=== PATIENT | male | born 1955 | race Caucasian/White ===

== ENCOUNTER 2020-08-17 19:25 | Emergency (ER) | payer MEDICARE ==
[~2020-08-17] VITALS: Ht 172.7 cm; Wt 125.2 kg
[2020-08-17 20:54] LABS: Source, Urine Clean Catch
[2020-08-17 20:58] LABS: Bilirubin, Urine Neg (Neg); Blood, Urine 4+ (Neg); Glucose Qualitative, Urine 4+ (Neg); Ketones, Urine Neg (Neg); Leukocyte Esterase, Urine Neg (Neg); Nitrite, Urine Neg (Neg); Protein, Urine 1+ (Neg); Specific Gravity, Urine 1.015 (1.003-1.022); Urobilinogen, Urine NORM (Normal)
[2020-08-17 20:58] LABS: BASOPHILS ABSOLUTE AUTO 0.04 K/mm3 (0.00-0.23); BASOPHILS PERCENT AUTO 1 % (0-2); EOSINOPHILS ABSOLUTE AUTO 0.18 K/mm3 (0.00-0.68); EOSINOPHILS PERCENT AUTO 2 % (0-6); Hematocrit 43.6 % (37.0-53.0); Hemoglobin 14.7 g/dL (13.5-17.5); IMMATURE GRAN ABSOLUTE AUTO 0.03 K/mm3 (0.00-0.10); IMMATURE GRAN PERCENT AUTO 0 % (0-1); LYMPHOCYTES ABSOLUTE AUTO 1.33 K/mm3 (0.84-5.20); LYMPHOCYTES PERCENT AUTO 17 % (21-46); MONOCYTES ABSOLUTE AUTO 0.74 K/mm3 (0.16-1.47); MONOCYTES PERCENT AUTO 9 % (4-13); Mean Corpuscular HGB 31.3 pg (26.0-34.0); Mean Corpuscular HGB Conc 33.7 g/dL (31.5-36.5); Mean Corpuscular Volume 93 fL (80-100); Mean Platelet Volume 11.6 fL (9.1-12.4); NEUTROPHILS ABSOLUTE AUTO 5.57 K/mm3 (1.96-9.15); NEUTROPHILS PERCENT AUTO 71 % (41-73); Platelet Count 245 K/mm3 (150-400); RDW Coefficient Variation 13.2 % (11.7-14.2); White Blood Cell Count 7.89 K/mm3 (4.00-11.30)
[2020-08-17 21:10] LABS: Albumin, Blood 3.6 g/dL (3.4-5.0); Bilirubin, Total 0.3 mg/dL (0.1-1.0); Bun/Creatinine Ratio 25.7 (12.0-20.0); Calcium, Blood 8.9 mg/dL (8.5-10.1); Creatinine, Blood 1.44 mg/dL (0.60-1.20); Globulin, Blood 3.6 g/dL (2.2-4.0); Potassium, Blood 4.3 mmol/L (3.5-5.5); Total Protein, Blood 7.2 g/dL (6.4-8.2)
[2020-08-17 21:12] LABS: Appearance, Urine Hazy (Clear); Color, Urine Yellow (P-Yellow)
[2020-08-17 21:13] LABS: Bacteria Few /hpf; Squamous Epithelial Cells Few /hpf (Few); White Blood Cells, Urine 0-2 /hpf (0-5)
[2020-08-17 21:15] LABS: Mucus Light (0-Heavy)
[2020-08-17] MEDS ORDERED: TORSE20 PO (21:19)
[2020-08-17] MEDS ORDERED: JARDIANCE25 MG PO (21:20)
[2020-08-17] MEDS ORDERED: DULOXETINE HCL60 M1 PO (21:20)
[2020-08-17] MEDS ORDERED: Potassium Chlo20 ME1 PO (21:21)
[2020-08-17] MEDS ORDERED: TRAZ50 PO (21:21)
[2020-08-17] MEDS ORDERED: PANTOPRAZOLE SO40 M2 PO (21:22)
[2020-08-17] MEDS ORDERED: TRULICITY0.75 MG/01 SC (21:22)
[2020-08-17] MEDS ORDERED: JANTOVEN5 M2 PO (21:23)
[2020-08-17] MEDS ORDERED: ISOSORBIDE MONO30 MG PO (21:23)
[2020-08-17] MEDS ORDERED: METO50ER PO (21:24)
[2020-08-17] MEDS ORDERED: SPIRONOLACTONE50 MG PO (21:24)
[2020-08-17] MEDS ORDERED: ENTRESTO 49 MG1 EACH PO (21:25)
[2020-08-17] MEDS ORDERED: Simvastatin10 MG PO (21:25)
[2020-08-17] MEDS ORDERED: Aspir 8181 MG PO (21:48)
[2020-08-17] MEDS ORDERED: HYDROCODONE-AC1 EA10 PO (22:40)
[2020-08-17] MEDS ORDERED: ACET500 PO (22:41)
[2020-08-17 23:51] LABS: International Normalized Ratio 2.81; Prothrombin Time Results 28.6 Sec (9.7-11.5)
[2020-08-18 02:04] LABS: Influenza A, PCR NEGATIVE (NEGATIVE); Influenza B, PCR NEGATIVE (NEGATIVE); Resp Syncytial Virus, PCR NEGATIVE (NEGATIVE); SARS-Cov-2 (COVID-19) PCR, MMC NEGATIVE (NEGATIVE)
== END 2020-08-18 01:58 | disposition short-term general hospital (02) ==
LOC: ER 19:25
PROVIDERS: Emergency Medicine
DX: I62.00 Nontraumatic subdural hemorrhage, unspecified (principal); R41.82 Altered mental status, unspecified; I25.10 Atherosclerotic heart disease of native coronary artery without angina pectoris; I25.2 Old myocardial infarction; I10 Essential (primary) hypertension; E78.00 Pure hypercholesterolemia, unspecified; E11.9 Type 2 diabetes mellitus without complications; Z79.01 Long term (current) use of anticoagulants; Z79.82 Long term (current) use of aspirin
CPT/HCPCS: 0241U; 51701; 70450; 71045; 80053; 81001; 85025; 85610; 96365; 96375; 99285-25; A9270-GY; J1100; J2270; J3430

== ENCOUNTER 2021-02-08 18:02 | Emergency (ER) | payer MEDICARE ==
[~2021-02-08] VITALS: Ht 172.7 cm; Wt 115.2 kg
[~2021-02-08 18:02] MED LIST: ACET500 PO; Aspir 8181 MG PO; DULOXETINE HCL60 M1 PO; ENTRESTO 49 MG1 EACH PO; HYDROCODONE-AC1 EA10 PO; ISOSORBIDE MONO30 MG PO; JANTOVEN5 M2 PO; JARDIANCE25 MG PO; METO50ER PO; PANTOPRAZOLE SO40 M2 PO; Potassium Chlo20 ME1 PO; SPIRONOLACTONE50 MG PO; Simvastatin10 MG PO; TORSE20 PO; TRAZ50 PO; TRULICITY0.75 MG/01 SC
[2021-02-08] MEDS ORDERED: TRULICITY1.5 MG/0.1 SC (18:24)
[2021-02-08] MEDS ORDERED: METO25ER PO (18:26)
[2021-02-08] MEDS ORDERED: ENTRESTO 24 MG1 EACH PO (18:27)
[2021-02-08] MEDS ORDERED: TORSE20 PO (18:29)
[2021-02-08] MEDS ORDERED: CLOP75 PO (18:31)
[2021-02-08 18:54] LABS: BASOPHILS ABSOLUTE AUTO 0.03 K/mm3 (0.00-0.23); BASOPHILS PERCENT AUTO 0 % (0-2); EOSINOPHILS ABSOLUTE AUTO 0.16 K/mm3 (0.00-0.68); EOSINOPHILS PERCENT AUTO 2 % (0-6); Hematocrit 45.9 % (37.0-53.0); Hemoglobin 14.4 g/dL (13.5-17.5); IMMATURE GRAN ABSOLUTE AUTO 0.04 K/mm3 (0.00-0.10); IMMATURE GRAN PERCENT AUTO 1 % (0-1); LYMPHOCYTES ABSOLUTE AUTO 0.95 K/mm3 (0.84-5.20); LYMPHOCYTES PERCENT AUTO 11 % (21-46); MONOCYTES ABSOLUTE AUTO 0.66 K/mm3 (0.16-1.47); MONOCYTES PERCENT AUTO 8 % (4-13); Mean Corpuscular HGB 27.7 pg (26.0-34.0); Mean Corpuscular HGB Conc 31.4 g/dL (31.5-36.5); Mean Corpuscular Volume 88 fL (80-100); NEUTROPHILS ABSOLUTE AUTO 7.01 K/mm3 (1.96-9.15); NEUTROPHILS PERCENT AUTO 79 % (41-73); Platelet Count 303 K/mm3 (150-400); RDW Coefficient Variation 16.4 % (11.7-14.2); RDW Standard Deviation 53.1 fL (35.1-46.3); White Blood Cell Count 8.85 K/mm3 (4.00-11.30)
[2021-02-08 19:24] LABS: Alanine Aminotransfer (ALT/SGP 23 U/L (12-78); Albumin, Blood 3.6 g/dL (3.4-5.0); Albumin/Globulin Ratio 0.9 (0.8-1.8); Alk Phos 79 U/L (50-136); Anion Gap 7 mmol/L (6-16); Aspartate Aminotrans (AST/SGOT 19 U/L (12-37); Bilirubin, Total 0.5 mg/dL (0.1-1.0); Blood Urea Nitrogen 15 mg/dL (8-24); Bun/Creatinine Ratio 13.3 (12.0-20.0); CO2, Blood 23 mmol/L (21-32); Calcium, Blood 9.1 mg/dL (8.5-10.1); Chloride, Blood 109 mmol/L (98-108); Creatinine, Blood 1.13 mg/dL (0.60-1.20); Globulin, Blood 4.1 g/dL (2.2-4.0); Glomerular Filtration Rate >60 (60-); Glucose, Blood 132 mg/dL (70-99); Potassium, Blood 4.4 mmol/L (3.5-5.5); Sodium, Blood 139 mmol/L (136-145); Total Protein, Blood 7.7 g/dL (6.4-8.2); Troponin I <0.015 ng/mL (0.000-0.040)
[2021-02-08 21:30] LABS: SARS-Cov-2 (COVID-19) PCR, MMC NEGATIVE (NEGATIVE)
[2021-02-08] MEDS ORDERED: ONDA4ODT MM (21:44)
== END 2021-02-08 22:27 | disposition home or self-care (01) ==
LOC: ER 18:02
PROVIDERS: Physician Assistant
DX: K52.9 Noninfective gastroenteritis and colitis, unspecified (principal); I25.2 Old myocardial infarction; Z86.73 Personal history of transient ischemic attack (TIA), and cerebral infarction without residual deficits; I25.10 Atherosclerotic heart disease of native coronary artery without angina pectoris; I10 Essential (primary) hypertension; E11.9 Type 2 diabetes mellitus without complications; Z20.822 Contact with and (suspected) exposure to COVID-19; Z79.899 Other long term (current) drug therapy; Z79.82 Long term (current) use of aspirin
CPT/HCPCS: 36415; 70450; 71045; 80053; 83690; 83880; 84484; 85025; 93005; 93010; 96361; 96374; 99284-25; A9270; J2405; J7030; U0004

== ENCOUNTER 2022-11-30 12:07 | Emergency (ER) | payer MEDICARE ==
[~2022-11-30] VITALS: Ht 172.7 cm; Wt 113.4 kg
[~2022-11-30 12:07] MED LIST changes: +CLOP75 PO; +ENTRESTO 24 MG1 EACH PO; +METO25ER PO; +ONDA4ODT MM; +TRULICITY1.5 MG/0.1 SC
[2022-11-30 12:13] VITALS: BP 109/56
== END 2022-11-30 13:29 | disposition home or self-care (01) ==
LOC: ER 12:07
DX: S70.12XA Contusion of left thigh, initial encounter (principal); S70.02XA Contusion of left hip, initial encounter; W11.XXXA Fall on and from ladder, initial encounter
CPT/HCPCS: 73502; 99283-25